=== PATIENT | male | born 1945 | race Caucasian/White ===

== ENCOUNTER → 2022-03-27 | Outpatient (CLI) | payer MEDICARE ==
[2021-04-16 11:00] VITALS: BP 182/90
[~2022-03-27] MED LIST: ALBU2.5V8 NEB; ASPI-630 PO; ATOR10TA60 PO; BISO5TAB8 PO; CARV6.253 PO; CEFD300C PO; DONE5TAB7 PO; FERROUS GLUCON325 M1 PO; FISH1CAP PO; LEVO500T9 PO; MAGN400C PO; MEMA10TA56 PO; MULT1CAP15 PO; OMEP40CA7 PO; PRED-220 PO; PRED20TA PO; RIVA20TA2 PO; SERT100T PO
--- NOTE | 2022-03-27 16:54 | KCIC ---
Right lower extremity arterial duplex ultrasound. 03/27/2022 Indication: Right lower extremity claudication. Peripheral vascular disease. Extensive smoking histor y. Procedure: Arterial 2D and duplex images are obtained of the lower extremity arteries. Findings: There is severe diffuse atherosclerotic vascular disease. Elevated velocities noted in the right common femoral artery to 240 cm/s. Blunted monophasic waveforms are seen in the right superfici al femoral artery with diffuse atherosclerotic vascular calcification. Bulky calcification seen in th e mid right SFA suggestive of at least moderate stenosis. The right popliteal artery, posterior tibia l artery, anterior tibial artery, peroneal arteries demonstrate monophasic flow. Patient has a histor y of bilateral common iliac artery stents. IMPRESSION: 1. Possible hemodynamic significant stenosis, right common femoral artery 2. Probable moderate stenosis right superficial femoral artery 3. History of bilateral common iliac artery stents. The findings and history suggest this patient could likely benefit from Conventional Angiography and possible attempted endovascular reconstruction by an endovascular specialist. If desired, we would be happy to see them in our IR clinic or discuss it further at [phone] . Referral can also be made by faxing written referral to [phone] Electronically signed by: Trumna Hoyt MD (03/27/2022 4:52 PM) [id number]
== END ==
LOC: KCIC US 14:26
PROVIDERS: ATTEND Family Medicine
DX: I70.201 Unspecified atherosclerosis of native arteries of extremities, right leg (principal)
CPT/HCPCS: 93926